=== PATIENT | female | born 1995 | race Hispanic/Latino ===

== ENCOUNTER 2022-09-02 22:49 | Emergency (ER) | payer OTHER ==
[~2022-09-02] VITALS: Ht 157.5 cm; Wt 73.5 kg
[2022-09-03] MEDS ORDERED: MAGNESIUM 2GM PREMIX 50ML 50 ML IV SCH
[2022-09-03] MEDS ORDERED: PREDNISONE 20 MG TABLET PO ONE
[2022-09-03] MEDS ORDERED: PRED20TA3 PO (01:24)
[2022-09-03] MEDS ORDERED: ALBU90AE2 IH (01:24)
[2022-09-03] MEDS ORDERED: GUAI237L97 PO (01:26)
[2022-09-03] MEDS ORDERED: ALBUTEROL INHALER 90MCG/INH IH ONE ×2 (01:28)
[2022-09-03 02:09] VITALS: BP 127/74
== END 2022-09-03 02:23 | disposition home or self-care (01) ==
LOC: EDH 22:49
DX: J10.1 Influenza due to other identified influenza virus with other respiratory manifestations (principal); J20.9 Acute bronchitis, unspecified; J45.909 Unspecified asthma, uncomplicated; Z20.822 Contact with and (suspected) exposure to COVID-19
CPT/HCPCS: 99284; 87635; 87804 ×2; 96365; C9803; J3475